=== PATIENT | male | born 1990 | race Caucasian/White ===

== ENCOUNTER 2017-06-27 10:31 | Emergency (ER) | payer BC ==
--- NOTE | 2017-06-27 11:51 | EDM.PDOC ---
ED HPI GENERAL MEDICAL PROBLEM - General Stated Complaint: ANKLE INJURY Time Seen by Provider: 06/27/17 11:40 Source of Information: Reports: Patient History Limitations: Reports: Physical Impairment (from rigth ankle injury) - History of Present Illness INITIAL COMMENTS - FREE TEXT/NARRATIVE: According to patient he claims that he slipped on ice last night around 11 PM and twisted his right ankle . Since then he has been in severe pain around the ankle and has not bore any weight on the right foot. He did splint it with duck tape and is here in the emergency room. No tingling or numbness in the foot. Able to move the toes well. Hurt to move the ankle. No other injuries. Onset Date: 06/26/17 Onset Time: 23:00 Location: Reports: Lower Extremity, Right Quality: Reports: Ache Severity: Moderate Improves with: Reports: Cold Therapy, Immobilization Context: Reports: Trauma (slipping on ice) Associated Symptoms: Denies: Confusion, Chest Pain, Cough, Diaphoresis, Fever/ Chills, Nausea/Vomiting, Rash, Seizure, Shortness of Breath, Syncope, Weakness - Related Data Allergies Allergy/AdvReac Type Severity Reaction Status Date / Time No Known Allergies Allergy Verified 06/27/17 11:44 Home Meds: Home Meds Venlafaxine [Effexor] 75 mg PO DAILY 06/27/17 [History] ED ROS GENERAL - Review of Systems Review Of Systems: See Below Constitutional: Denies: Fever, Chills, Malaise HEENT: Denies: Rhinitis, Throat Pain Respiratory: Denies: Shortness of Breath, Cough, Sputum Cardiovascular: Denies: Chest Pain, Lightheadedness GI/Abdominal: Denies: Abdominal Pain, Nausea, Vomiting : Denies: Flank Pain Musculoskeletal: Reports: Foot Pain, Joint Pain, Joint Swelling. Denies: Muscle Pain, Muscle Stiffness Skin: Reports: Bruising. Denies: Pruritis, Rash, Erythema, Wound Neurological: Denies: Confusion, Dizziness ED EXAM, GENERAL - Physical Exam Exam: See Below Exam Limited By: No Limitations General Appearance: Alert, WD/WN, Mild Distress Eye Exam: Bilateral Eye: EOMI, PERRL Ears: Normal External Exam, Normal Canal, Hearing Grossly Normal, Normal TMs Ear Exam: Bilateral Ear: Auricle Normal, Canal Normal, TM normal Nose: Normal Inspection, Normal Mucosa, No Blood Throat/Mouth: Normal Inspection, Normal Lips, Normal Teeth, Normal Gums, Normal Oropharynx, Normal Voice, No Airway Compromise Head: Atraumatic, Normocephalic Neck: Normal Inspection, Supple, Non-Tender, Full Range of Motion Respiratory/Chest: No Respiratory Distress, Lungs Clear, Normal Breath Sounds, No Accessory Muscle Use, Chest Non-Tender Cardiovascular: Normal Peripheral Pulses, Regular Rate, Rhythm, No Edema, No Gallop, No JVD, No Murmur, No Rub Extremities: Other (Right ankle: there is brusising around the ankle and the distal aspect of the leg. There is minimal swelling around the ankle joiont. there is prominence of the medail malleolus and the foot is slight displaced to laterally. tender over the distal fibula and lateral malleolus. Also ther skin over the medail aspect of the ankle is stretched from bone protruding under the skin. no skin breakdown.) Neurological: Alert, Oriented, CN II-XII Intact Course - Vital Signs Text/Narrative:: Pt does have significant deformity with lateral displacement of the right foot. His neurovascular exam of the foot is normal. good capillary refill and good dorsalis pedis pulse. Xray of the ankle was done. Pt in severe pain received dilaudid 2mg IV initially to get xray done. X-ray right ankle does distal fibular fracture with posterior displacement of the lateral malleolus with possible distal tibial fracture with lateral displacement of the foot. The injury is more than 12 hrs old with tissue swelling.At this point did try contacting [facility] twice and could not get call back. I offered patient that I might need to contact [facility] for Ortho consult.. Pt prefers to be transferred to [facility] as he is from [place], [place] close to [place]. Pt does understand that there might be any extra ambulance fare that he might need to pay for the transfer and he understand it. Considering patient's wish, I did contact [facility] and discuss patient with Dr. Alcantara, ortho pedist frickertron checker. Dr Borjas's recommendation was to send patient down to [facility] ER for further workup. I have applied splint and post splint neurovascular exam is normal with good capillary refill of the toes.He did receive 1mg Dilaudid with zofran 4mg IV before transfer. Further care per Dr. Segal. - Orders/Labs/Meds Orders: Active Orders 24 hr Category Date Time Status Ankle 2V Rt [CR] Stat Exams 06/27/17 11:51 Taken Meds: Medications Discontinued Medications Generic Name Dose Route Start Last Admin Trade Name Isaelq PRN Reason Stop Dose Admin Hydromorphone HCl 1 mg 06/27/17 11:52 Dilaudid IVPUSH 06/27/17 11:53 ONETIME ONE Hydromorphone HCl Confirm 06/27/17 11:59 Dilaudid Administered 06/27/17 12:00 Dose 4 mg .ROUTE .STK-MED ONE Ondansetron HCl Confirm 06/27/17 12:03 Zofran Administered 06/27/17 12:04 Dose 4 mg .ROUTE .STK-MED ONE Ondansetron HCl Confirm 06/27/17 13:14 Zofran Administered 06/27/17 13:15 Dose 4 mg .ROUTE .STK-MED ONE Departure - Departure Time of Disposition: 13:30 Disposition: DC/Tfer to Acute Hospital 02 Condition: Fair Clinical Impression: Bimalleolar fracture of right ankle - Discharge Information - Problem List & Annotations (1) Bimalleolar fracture of right ankle SNOMED Code(s): 789621894 Code(s): S82.841A - DISPLACED BIMALLEOLAR FRACTURE OF RIGHT LOWER LEG, INIT Status: Acute Current Visit: Yes - Problem List Review Problem List Initiated/Reviewed/Updated: Yes - My Orders Last 24 Hours: My Active Orders 06/27/17 11:51 Ankle 2V Rt [CR] Stat - Assessment/Plan Last 24 Hours: My Active Orders 06/27/17 11:51 Ankle 2V Rt [CR] Stat Assessment:: bimalleolar ankle fracture with displacement Plan: Pt does have significant deformity with lateral displacement of the right foot. His neurovascular exam of the foot is normal. good capillary refill and good dorsalis pedis pulse. Xray of the ankle was done. Pt in severe pain received dilaudid 2mg IV initially to get xray done. X-ray right ankle does distal fibular fracture with posterior displacement of the lateral malleolus with possible distal tibial fracture with lateral displacement of the foot. The injury is more than 12 hrs old with tissue swelling.At this point did try contacting [facility] twice and could not get call back. I offered patient that I might need to contact [facility] for Ortho consult.. Pt prefers to be transferred to [facility] as he is from [place], [place] close to [place]. Pt does understand that there might be any extra ambulance fare that he might need to pay for the transfer and he understand it. Considering patient's wish, I did contact [facility] and discuss patient with Dr. Alcantara, ortho pedist frickertron checker. Dr oBrjas's recommendation was to send patient down to [facility] ER for further workup. I have applied splint and post splint neurovascular exam is normal with good capillary refill of the toes.He did receive 1mg Dilaudid with zofran 4mg IV before transfer. Further care per Dr. Segal.
[2017-06-27] MEDS ORDERED: HYDROmorphone 2 MG/ML Syringe IVPUSH ONE (11:52)
[2017-06-27] MEDS ORDERED: HYDROmorphone 4 MG/ML Syringe ONE (11:59)
[2017-06-27] MEDS ORDERED: Ondansetron 4 MG/2 ML SDV ONE ×2 (12:03→13:14)
--- NOTE | 2017-06-28 19:15 | CR ---
DATE OF SERVICE: 06/27/2017 CLINICAL DATA: Right ankle injury. RIGHT ANKLE: There is a fracture dislocation of the ankle joint. There is an oblique comminuted fracture through the distal fibula with posterior displacement angulation of the distal fragments with respect to the proximal. The talar dome is dislocated laterally and posteriorly with respect to the distal tibia. The tibiotalar joint is markedly widened medially. There is also an apparent fracture involving the distal tibia. Orthopedic consultation is recommended. [id number] [facility]
== END 2017-06-27 13:30 ==
LOC: LB.ED 10:31
DX: S82.841A Displaced bimalleolar fracture of right lower leg, initial encounter for closed fracture (principal); W00.0XXA Fall on same level due to ice and snow, initial encounter
CPT/HCPCS: 29515; 73600-RT; 96374; 99284-25; A0425; A0429